=== PATIENT | female | born 1935 | race Caucasian/White ===

== ENCOUNTER → 2017-01-08 | Day surgery (SDC) | payer MEDICARE, OTHER ==
[~2017-01-08] VITALS: Ht 157.5 cm; Wt 112.5 kg
[~2017-01-08] MED LIST: PRILOSEC20 MG PO
[2017-01-08 07:57] LABS: HCT 33.6 % (37.0-47.0); HGB 10.3 g/dl (12.5-16.0); MCH 28.8 pg (25.0-31.0); MCHC 30.7 g/dL (32.0-36.0); MCV 93.9 fL (78.0-100.0); PLT 255 K/uL (150-400); RBC 3.58 M/uL (4.20-5.40)
[2017-01-08 08:19] LABS: ALBUMIN 3.8 g/dL (3.4-4.8); BILIRUBIN - TOTAL 0.3 mg/dL (0.1-1.0); CREATININE 2.2 mg/dL (0.5-1.0); GLOBULIN (CALCULATION) 2.6 g/dL (2.2-4.2); POTASSIUM 3.1 mmol/L (3.5-5.1); TOTAL PROTEIN 6.4 g/dL (6.4-8.3)
== END | disposition home or self-care (01) ==
LOC: FAS 07:07
PROVIDERS: Surgery
DX: Z12.11 Encounter for screening for malignant neoplasm of colon (principal); K57.30 Diverticulosis of large intestine without perforation or abscess without bleeding; K58.9 Irritable bowel syndrome, unspecified; I12.9 Hypertensive chronic kidney disease with stage 1 through stage 4 chronic kidney disease, or unspecified chronic kidney disease; E11.22 Type 2 diabetes mellitus with diabetic chronic kidney disease; N18.9 Chronic kidney disease, unspecified; E78.5 Hyperlipidemia, unspecified; G47.30 Sleep apnea, unspecified; F32.9 Major depressive disorder, single episode, unspecified; E03.9 Hypothyroidism, unspecified; E66.01 Morbid (severe) obesity due to excess calories; Z68.42 Body mass index [BMI] 45.0-49.9, adult; Z88.1 Allergy status to other antibiotic agents; Z88.2 Allergy status to sulfonamides; Z95.0 Presence of cardiac pacemaker; Z90.89 Acquired absence of other organs; Z82.3 Family history of stroke; Z86.010 Personal history of colon polyps; Z81.8 Family history of other mental and behavioral disorders; Z83.3 Family history of diabetes mellitus; Z81.1 Family history of alcohol abuse and dependence; Z82.49 Family history of ischemic heart disease and other diseases of the circulatory system; Z87.891 Personal history of nicotine dependence; Z79.899 Other long term (current) drug therapy
CPT/HCPCS: 36415; 80053; J2704

== ENCOUNTER 2021-06-29 23:51 | Inpatient (IN) | payer MEDICARE, OTHER ==
[~2021-06-29] VITALS: Ht 157.5 cm; Wt 91.2 kg
[~2021-06-29 23:51] MED LIST changes: +ALLERGY EYE DRO10 M1 EYEBOTH; +ALLOPURINOL100 MG PO; +BREO ELLIPTA 11 EACH INH; +CALTRATE 600 +1 EAC1 PO; +CELEXA10 MG PO; +COLCHICINE0.6 MG PO; +COLCRYS0.6 MG PO; +DEMADEX20 MG PO; +K-DUR20 MEQ PO; +LAMICTAL100 MG PO; +LOPRESSOR50 MG PO; +MIRALAX17 GM PO; +NORVASC5 MG PO; +PANTOPRAZOLE SO40 MG PO; +PROTONIX 40MG T40 MG PO; +ROCALTROL0.25 MCG PO; +SYNTHROID150 MCG PO; +VITAMIN B-121000 MC1 SC; +WELLBUTRIN XL150 MG PO
[2021-06-30 02:31] LABS: ALBUMIN 3.3 g/dL (3.4-5.0); BILIRUBIN - TOTAL 0.3 mg/dL (0.2-1.0); CREATININE 2.53 mg/dL (0.51-0.95); GLOBULIN (CALCULATION) 3.7 g/dL; MAGNESIUM 2.3 mg/dL (1.8-2.4); PHOSPHORUS 4.5 mg/dL (2.6-4.7); POTASSIUM 3.9 mmol/L (3.5-5.1)
[2021-06-30 02:39] LABS: BASOPHIL 0.2 % (0-2); EOSINOPHIL 3.1 % (0-7); HCT 39.9 % (37.0-47.0); HGB 13.1 g/dl (12.5-16.0); LYMPHOCYTE 26.7 % (15-48); MCH 32.5 pg (25.0-31.0); MCHC 32.8 g/dL (32.0-36.0); MONOCYTE 7.7 % (0-12); MPV 11.6 fL (6.0-9.5); NRBC 0; PLT 184 K/uL (150-400); RBC 4.03 M/uL (4.20-5.40); RDW 13.1 % (11.5-14.0); WBC 9.2 K/uL (4.0-10.5)
[2021-06-30 02:43] LABS: INR 0.96 (0.9-1.2); PROTHROMBIN TIME 12.2 SECONDS (11.8-13.4); PTT 23.9 SECONDS (24.4-34.7)
[2021-06-30 02:53] LABS: BILIRUBIN NEGATIVE (NEGATIVE); BLOOD NEGATIVE Ery/uL (NEGATIVE); CLARITY CLEAR (CLEAR); COLOR YELLOW (YELLOW); GLUCOSE (U) NORMAL (NORMAL); LEUKOCYTES NEGATIVE Leu/uL (NEGATIVE); NITRITE NEGATIVE (NEGATIVE); PROTEIN NEGATIVE (NEGATIVE); UROBILINOGEN 0.2 mg/dL (0.2-1.0)
[2021-06-30] MEDS ORDERED: COLCRYS0.6 MG PO (04:36)
[2021-06-30] MEDS ORDERED: SYNTHROID125 MCG PO (04:40)
[2021-06-30] MEDS ORDERED: TOPROL XL 50 MG50 MG PO (04:42)
[2021-06-30] MEDS ORDERED: PROTONIX 40MG T40 MG PO (04:43)
[2021-06-30] MEDS ORDERED: UROCIT-K10 MEQ PO (04:44)
[2021-06-30] MEDS ORDERED: COZAAR50 MG PO (04:45)
[2021-06-30] MEDS ORDERED: DEMADEX20 MG PO (04:46)
[2021-06-30] MEDS ORDERED: TUMS200 MG PO (04:47)
[2021-06-30] MEDS ORDERED: PHOSLO667 MG PO (04:48)
[2021-06-30] MEDS ORDERED: LIPITOR20 MG PO (04:50)
[2021-06-30] MEDS ORDERED: ARTHRITIS PAIN650 M2 PO ×2 (04:51→04:53)
[2021-06-30] MEDS ORDERED: REFRESH OPTIVE10 M1 EYEBOTH (04:55)
[2021-06-30] MEDS ORDERED: REFRESH CLASSI1 EACH EYEBOTH (04:56)
[2021-06-30] MEDS ORDERED: PRESERVISION A1 EACH PO (04:57)
[2021-06-30] MEDS ORDERED: MIRALAX17 GM PO (04:59)
[2021-06-30] MEDS ORDERED: ATARAX25 MG PO (05:01)
[2021-06-30] MEDS ORDERED: VOLTAREN ARTHRI20 GM TOP (05:02)
[2021-06-30 18:00] LABS: FT4 (FREE T4) 1.3 ng/dL (0.76-1.46)
[2021-06-30 18:01] LABS: BUN/CREAT RATIO (CALC) 17.3 RATIO; CREATININE 2.14 mg/dL (0.51-0.95); POTASSIUM 3.3 mmol/L (3.5-5.1)
[2021-07-01 06:26] LABS: ALBUMIN 2.8 g/dL (3.4-5.0); BILIRUBIN - TOTAL 0.2 mg/dL (0.2-1.0); BUN/CREAT RATIO (CALC) 15.3 RATIO; CREATININE 2.16 mg/dL (0.51-0.95); GLOBULIN (CALCULATION) 2.7 g/dL; MAGNESIUM 1.9 mg/dL (1.8-2.4); PHOSPHORUS 3.1 mg/dL (2.6-4.7); TOTAL PROTEIN 5.5 g/dL (6.4-8.2)
[2021-07-01 07:01] LABS: BASOPHIL 0.4 % (0-2); EOSINOPHIL 3.7 % (0-7); HCT 36.9 % (37.0-47.0); LYMPHOCYTE 18.7 % (15-48); MCH 32.3 pg (25.0-31.0); MCHC 32.5 g/dL (32.0-36.0); MCV 99.5 fL (78.0-100.0); MONOCYTE 7.5 % (0-12); MPV 10.6 fL (6.0-9.5); NEUTROPHIL 69.4 % (41-80); NRBC 0; PLT 154 K/uL (150-400); RBC 3.71 M/uL (4.20-5.40); RDW 13.3 % (11.5-14.0); WBC 7.9 K/uL (4.0-10.5)
[2021-07-01 16:06] LABS: RETICULOCYTE COUNT 1.4 % (1.0-2.0)
[2021-07-01 16:14] LABS: IRON % SATURATION 19.8 %SAT (20-50)
[2021-07-02 07:06] LABS: BASOPHIL 0.5 % (0-2); EOSINOPHIL 2.9 % (0-7); HCT 38.3 % (37.0-47.0); HGB 12.6 g/dl (12.5-16.0); LYMPHOCYTE 15.5 % (15-48); MCH 32.6 pg (25.0-31.0); MCHC 32.9 g/dL (32.0-36.0); MONOCYTE 7.5 % (0-12); MPV 10.2 fL (6.0-9.5); NEUTROPHIL 73.3 % (41-80); NRBC 0; PLT 164 K/uL (150-400); RBC 3.87 M/uL (4.20-5.40); RDW 13.3 % (11.5-14.0); WBC 10.4 K/uL (4.0-10.5)
[2021-07-02 07:38] LABS: BUN/CREAT RATIO (CALC) 14.7 RATIO; CREATININE 1.91 mg/dL (0.51-0.95); MAGNESIUM 1.9 mg/dL (1.8-2.4)
[2021-07-02] MEDS ORDERED: UROCIT-K10 MEQ PO (13:45)
[2021-07-03 12:07] LABS: PTH, INTACT 6 pg/mL (15-65)
[2021-07-03 14:08] LABS: ALBUMIN 3.1 g/dL (2.9-4.4); ALPHA-1-GLOBULIN 0.3 g/dL (0.0-0.4); ALPHA-2-GLOBULIN 0.8 g/dL (0.4-1.0); BETA GLOBULIN 0.9 g/dL (0.7-1.3); GAMMA GLOBULIN 0.9 g/dL (0.4-1.8); M-SPIKE 0.4 g/dL (Not Observed); PROTEIN, TOTAL, SERUM 6.1 g/dL (6.0-8.5)
== END 2021-07-02 15:49 | disposition home health service (06) | DRG 640 ==
LOC: FER 23:51 → FMS 06-30 03:26
PROVIDERS: Emergency Medicine; ADMIT Internal Medicine
DX: E83.52 Hypercalcemia (principal); G93.41 Metabolic encephalopathy; N17.9 Acute kidney failure, unspecified; I13.0 Hypertensive heart and chronic kidney disease with heart failure and stage 1 through stage 4 chronic kidney disease, or unspecified chronic kidney disease; I50.22 Chronic systolic (congestive) heart failure; N18.4 Chronic kidney disease, stage 4 (severe); Z20.822 Contact with and (suspected) exposure to COVID-19; E78.5 Hyperlipidemia, unspecified; G47.30 Sleep apnea, unspecified; I25.10 Atherosclerotic heart disease of native coronary artery without angina pectoris; M10.9 Gout, unspecified; E87.6 Hypokalemia; Z96.611 Presence of right artificial shoulder joint; Z96.612 Presence of left artificial shoulder joint; Z96.641 Presence of right artificial hip joint; I25.2 Old myocardial infarction; Z95.0 Presence of cardiac pacemaker; Z88.2 Allergy status to sulfonamides; Z88.1 Allergy status to other antibiotic agents; Z79.899 Other long term (current) drug therapy; Z90.49 Acquired absence of other specified parts of digestive tract; Z90.89 Acquired absence of other organs
CPT/HCPCS: 36415; 70450; 71045; 80048; 80053; 81003; 82040; 82306; 82310; 82607; 82652; 82746; 83540; 83550; 83605; 83735; 83880; 83970; 84100; 84145; 84155; 84165; 84439; 84443; 84484; 84550; 85025; 85610; 85730; 87088; 93005; 94640; J0360; J7030; U0002

== ENCOUNTER 2022-03-27 19:12 | Inpatient (IN) | payer MEDICARE, OTHER ==
[~2022-03-27] VITALS: Ht 157.5 cm; Wt 91.3 kg
[~2022-03-27 19:12] MED LIST changes: +ARTHRITIS PAIN650 M2 PO; +ATARAX25 MG PO; +COZAAR50 MG PO; +LIPITOR20 MG PO; +PHOSLO667 MG PO; +PRESERVISION A1 EACH PO; +REFRESH CLASSI1 EACH EYEBOTH; +REFRESH OPTIVE10 M1 EYEBOTH; +SYNTHROID125 MCG PO; +TOPROL XL 50 MG50 MG PO; +TUMS200 MG PO; +UROCIT-K10 MEQ PO; +VOLTAREN ARTHRI20 GM TOP
[2022-03-27 21:50] LABS: BASOPHIL 0.2 % (0-2); EOSINOPHIL 0.2 % (0-7); HCT 39.5 % (37.0-47.0); HGB 12.6 g/dl (12.5-16.0); LYMPHOCYTE 6.4 % (15-48); MCH 32.3 pg (25.0-31.0); MCHC 31.9 g/dL (32.0-36.0); MCV 101.3 fL (78.0-100.0); MONOCYTE 4.9 % (0-12); MPV 10.4 fL (6.0-9.5); NEUTROPHIL 87.5 % (41-80); NRBC 0; PLT 166 K/uL (150-400); RDW 14.4 % (11.5-14.0); WBC 10.5 K/uL (4.0-10.5)
[2022-03-27 22:00] LABS: INR 1.17 (0.9-1.2); PROTHROMBIN TIME 14.3 SECONDS (11.8-13.4); PTT 28.6 SECONDS (24.4-34.7)
[2022-03-27 22:11] LABS: ALBUMIN 2.6 g/dL (3.4-5.0); BILIRUBIN - TOTAL 0.3 mg/dL (0.2-1.0); BUN/CREAT RATIO (CALC) 15.9 RATIO; CREATININE 3.14 mg/dL (0.51-0.95); GLOBULIN (CALCULATION) 4.1 g/dL; POTASSIUM 3.9 mmol/L (3.5-5.1); TOTAL PROTEIN 6.7 g/dL (6.4-8.2)
[2022-03-27 23:12] LABS: LYMPHOCYTE(M) 7 % (15-48); MONOCYTE(M) 5 % (0-12); NEUTROPHILS(M) 88 % (41-80); TOTAL CELL COUNT 100
[2022-03-27 23:14] LABS: PLATELET ESTIMATE NORMAL; PLATELET MORPHOLOGY NORMAL
[2022-03-28] MEDS ORDERED: ALLOPURINOL 10100 MG PO (01:09)
[2022-03-28] MEDS ORDERED: NORVASC5 MG PO (01:09)
[2022-03-28] MEDS ORDERED: LIPITOR20 MG PO (01:10)
[2022-03-28] MEDS ORDERED: ARTHRITIS PAIN650 MG PO (01:10)
[2022-03-28] MEDS ORDERED: BREO ELLIPTA 11 EACH INH (01:11)
[2022-03-28] MEDS ORDERED: WELLBUTRIN SR150 MG PO (01:12)
[2022-03-28] MEDS ORDERED: CALCITRIOL0.25 MCG PO (01:13)
[2022-03-28] MEDS ORDERED: CALCIUM ANTACI400 MG PO (01:14)
[2022-03-28] MEDS ORDERED: COLCRYS0.6 MG PO (01:15)
[2022-03-28] MEDS ORDERED: VITAMIN B-121000 MC1 IM (01:16)
[2022-03-28] MEDS ORDERED: FLAREX5 ML OP (01:16)
[2022-03-28] MEDS ORDERED: FLUOROMETHOLONE5 ML OP (01:17)
[2022-03-28] MEDS ORDERED: ALAWAY10 ML OP (01:18)
[2022-03-28] MEDS ORDERED: LAMICTAL100 MG PO (01:18)
[2022-03-28] MEDS ORDERED: LOPRESSOR50 MG PO (01:19)
[2022-03-28] MEDS ORDERED: LEVOTHYROXINE125 MC1 PO (01:19)
[2022-03-28] MEDS ORDERED: COZAAR50 MG PO (01:19)
[2022-03-28] MEDS ORDERED: PROTONIX 40MG T40 MG PO (01:21)
[2022-03-28] MEDS ORDERED: K-TAB ER20 MEQ PO (01:22)
[2022-03-28] MEDS ORDERED: PRESERVISION A1 EAC3 PO (01:22)
[2022-03-28] MEDS ORDERED: REFRESH CLASSI1 EACH OP (01:23)
[2022-03-28] MEDS ORDERED: SOAANZ20 MG PO (01:24)
[2022-03-28] MEDS ORDERED: VENTOLIN HFA IN18 GM INH (01:25)
[2022-03-28] MEDS ORDERED: ATARAX25 MG PO (01:26)
[2022-03-28] MEDS ORDERED: MIRALAX17 GM PO (01:27)
[2022-03-28] MEDS ORDERED: VOLTAREN ARTHRI20 GM TOP (01:29)
[2022-03-28 06:40] LABS: BASOPHIL 0.1 % (0-2); EOSINOPHIL 0 % (0-7); HCT 38.4 % (37.0-47.0); LYMPHOCYTE 3.2 % (15-48); MCH 32.1 pg (25.0-31.0); MCHC 31.3 g/dL (32.0-36.0); MCV 102.7 fL (78.0-100.0); MONOCYTE 0.9 % (0-12); NEUTROPHIL 95.1 % (41-80); NRBC 0; PLT 151 K/uL (150-400); RBC 3.74 M/uL (4.20-5.40); RDW 14.2 % (11.5-14.0); WBC 9.8 K/uL (4.0-10.5)
[2022-03-28 07:04] LABS: BUN 52 mg/dL (7-18); BUN/CREAT RATIO (CALC) 16.5 RATIO; C-REACTIVE PROTEIN >18.00 mg/dL (<=0.90); CHLORIDE 101 mmol/L (98-107); CO2 (BICARBONATE) 22 mmol/L (21-32); CREATININE 3.15 mg/dL (0.51-0.95); GLUCOSE 106 mg/dL (74-106); MAGNESIUM 1.9 mg/dL (1.8-2.4)
[2022-03-29 06:07] LABS: BASOPHIL 0.1 % (0-2); EOSINOPHIL 0 % (0-7); HCT 34.6 % (37.0-47.0); HGB 11.2 g/dl (12.5-16.0); LYMPHOCYTE 2.8 % (15-48); MCH 32.4 pg (25.0-31.0); MCHC 32.4 g/dL (32.0-36.0); MONOCYTE 3.8 % (0-12); MPV 10.3 fL (6.0-9.5); NEUTROPHIL 92.3 % (41-80); PLT 186 K/uL (150-400); RBC 3.46 M/uL (4.20-5.40); RDW 14.1 % (11.5-14.0); WBC 11.2 K/uL (4.0-10.5)
[2022-03-29 07:05] LABS: EOSINOPHIL(M) 1 % (0-7); LYMPHOCYTE(M) 5 % (15-48); MONOCYTE(M) 5 % (0-12); NEUTROPHILS(M) 89 % (41-80); PLATELET ESTIMATE NORMAL; PLATELET MORPHOLOGY NORMAL; TOTAL CELL COUNT 100
[2022-03-29 07:28] LABS: BUN/CREAT RATIO (CALC) 18.4 RATIO; CREATININE 3.32 mg/dL (0.51-0.95); POTASSIUM 4.5 mmol/L (3.5-5.1)
--- NOTE | 2022-03-30 06:27 | NUR ---
AT 0433 PT. HR INCREASED FROM 65 TO 130 WITH A RHYTHM OF VTACH/VFIB. WENT TO CHECK ON PT. AND PT. WAS LYING IN BED NOT BREATHING, NO PULSE PALPABLE. SUPERVISING LIBRARIAN WAS NOTIFIED. SUPERVISING LIBRARIAN PRONOUNCED PT. AT 445. VITAL SIGNS HAD BEEN WNL THROUGHTOUT THE NIGHT, PT. HAD BEEN HALLUCINATING- SEEING PEOPLE AND SNAKES AND ANTS IN HER BED. ER,RN
--- NOTE | 2022-03-30 14:22 | NUR ---
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 She used a rollator for ambulation. On 03/29/22 Any Santiago RN at [facility], requested for OT/PT to evaluate for possible admission to [facility]. Recommendations were made for pause the referral process due to patient's decline in condition. - Sister on 03/30.
== END 2022-03-30 06:55 | disposition expired | DRG 177 ==
LOC: FER 19:12 → FMS 23:58 → FTCU 03-29 11:05
PROVIDERS: Internal Medicine; Nurse Practitioner Acute Care; Nurse Practitioner Family; ADMIT Internal Medicine
PROC: 3E0333Z Introduction of Anti-inflammatory into Peripheral Vein, Percutaneous Approach (ICD-10-PCS; 2022-03-27)
PROC: 8E0ZXY6 Isolation (ICD-10-PCS; 2022-03-27)
PROC: B24BZZZ Ultrasonography of Heart with Aorta (ICD-10-PCS; principal; 2022-03-28)
PROC: XW033E5 Introduction of Remdesivir Anti-infective into Peripheral Vein, Percutaneous Approach, New Technology Group 5 (ICD-10-PCS; 2022-03-28)
PROC: 05HY33Z Insertion of Infusion Device into Upper Vein, Percutaneous Approach (ICD-10-PCS; 2022-03-28)
DX: U07.1 COVID-19 (principal); I50.33 Acute on chronic diastolic (congestive) heart failure; J12.82 Pneumonia due to coronavirus disease 2019; J96.01 Acute respiratory failure with hypoxia; I13.0 Hypertensive heart and chronic kidney disease with heart failure and stage 1 through stage 4 chronic kidney disease, or unspecified chronic kidney disease; N17.9 Acute kidney failure, unspecified; N18.4 Chronic kidney disease, stage 4 (severe); J44.0 Chronic obstructive pulmonary disease with (acute) lower respiratory infection; J44.1 Chronic obstructive pulmonary disease with (acute) exacerbation; I46.9 Cardiac arrest, cause unspecified; Z66 Do not resuscitate; G47.33 Obstructive sleep apnea (adult) (pediatric); I25.10 Atherosclerotic heart disease of native coronary artery without angina pectoris; E78.5 Hyperlipidemia, unspecified; D69.6 Thrombocytopenia, unspecified; E03.9 Hypothyroidism, unspecified; E66.01 Morbid (severe) obesity due to excess calories; M19.90 Unspecified osteoarthritis, unspecified site; M10.9 Gout, unspecified; D53.9 Nutritional anemia, unspecified; R73.9 Hyperglycemia, unspecified; T38.0X5A Adverse effect of glucocorticoids and synthetic analogues, initial encounter; I49.5 Sick sinus syndrome; Z96.641 Presence of right artificial hip joint; E88.09 Other disorders of plasma-protein metabolism, not elsewhere classified; Z88.3 Allergy status to other anti-infective agents; Z88.2 Allergy status to sulfonamides; Z90.49 Acquired absence of other specified parts of digestive tract; Z98.890 Other specified postprocedural states; Z80.2 Family history of malignant neoplasm of other respiratory and intrathoracic organs; Z79.899 Other long term (current) drug therapy; Z87.39 Personal history of other diseases of the musculoskeletal system and connective tissue; Z68.36 Body mass index [BMI] 36.0-36.9, adult; Z86.010 Personal history of colon polyps; I25.2 Old myocardial infarction; Z95.0 Presence of cardiac pacemaker
CPT/HCPCS: 36415; 36600; 71045; 80048; 80053; 82607; 82803; 83735; 83880; 84145; 84484; 85025; 85610; 85730; 86140; 93005; 94640; 94667; 94668; 94760; 94762; 97110; 97116; 97162; 97165; 97530; 97535; C1751; C9399; J1100; J1644; J1650; J7050; J8540